=== PATIENT | female | born 1930 | race Caucasian/White ===

== ENCOUNTER 2017-01-17 09:12 | Outpatient (CLI) | payer MEDICARE ==
--- NOTE | 2017-01-17 18:27 | CT ---
CT ABDOMEN AND PELVIS WITHOUT CONTRAST 01/17/[address] of the abdomen and pelvis was performed for evaluation of possible ascites. Axial slices we re acquired after giving oral and IV contrast. Coronal and sagittal reconstructions were done. Coronary artery calcifications are seen in the right coronary system. The left coronary artery is not visualized. There are no pericardial effusions. Some dependent atelectasis is seen in the lungs, but they are otherwise clear. The liver, spleen, pancreas, adrenal glands, kidneys, and abdominal aorta showed no acute findings. T here has been a prior cholecystectomy. There is extensive arteriosclerosis at the origin of the james c and SMA, however, contrast does go into each artery. No ascites is seen in this patient. The bowel is nondistended and shows no wall thickening. Diverticu losis is present without findings of diverticulitis. It is worse in the sigmoid region. No free air o r free fluid was evident. CT of the pelvis shows no pelvic masses, fluid collections, or inflammatory changes. Extensive surgic al changes are seen in the lower lumbar spine. IMPRESSION: 1. No evidence of ascites or abdominal distention. 2. Diverticulosis without diverticulitis. POS: HOME
== END 2017-01-17 09:13 | disposition home or self-care (01) ==
LOC: BURCT 09:12
PROVIDERS: ATTEND Family Medicine
DX: R18.8 Other ascites (principal); K57.90 Diverticulosis of intestine, part unspecified, without perforation or abscess without bleeding
CPT/HCPCS: 74177

== ENCOUNTER 2017-02-07 11:05 | Emergency (ER) | payer MEDICARE ==
[2017-02-07] MEDS ORDERED: Metoprolol Tartrate 5 MG/5 ML VIAL ONE (11:36)
[2017-02-07 11:40] LABS: #Basophils 0.1 thou/uL (0.0-0.2); #Eosinphils 0.2 thou/uL (0.0-0.7); #Lymphocytes 1.6 thou/uL (1.20-3.40); #Monocytes 0.6 thou/uL (0.11-0.59); #Neutrophils 5.4 thou/uL (1.40-6.50); %Eosinophils 2.3 % (0.0-10.0); %Lymphocytes 20.2 % (21.0-51.0); %Monocytes 7.3 % (0.0-10.0); %Neutrophils 69.2 % (42.0-75.0); Hemoglobin 14.5 g/dL (12.0-16.0); Mean Corpuscular HGB CONC 35.6 g/dL (32.0-36.0); Mean Corpuscular Hemoglobin 34.4 pg (27.0-31.0); Mean Corpuscular Volume 96.8 fl (81.0-99.0); Mean Platelet Volume 8.4 fL (7.4-10.4); Platelet Count 175 thou/uL (130-400); RBC Distribution Width 11.7 % (11.5-14.5); White Blood Cell (WBC) Count 7.8 thou/uL (4.8-10.8)
[2017-02-07 11:49] LABS: Anion Gap 15 mmol/L (10-20); BUN (Urea Nitrogen) 20 mg/dL (9.8-20.1); Calc. Creatinine Clearance 0 mL/min (70-130); Calcium 9.8 mg/dL (7.8-10.44); Carbon Dioxide 24 mmol/L (23-31); Chloride 99 mmol/L (98-107); Estimated GFR-MDRD 65; Glucose 84 mg/dL (83-110); Sodium 134 mmol/L (136-145)
[2017-02-07 11:54] LABS: PLT Morphology Comment Appears Adequate; RBC Morphology Normal
[2017-02-07 11:55] LABS: Troponin I 0.069 ng/mL (< 0.028)
--- NOTE | 2017-02-07 19:30 | RAD ---
PORTABLE CHEST 02/07/17 An AP portable film at 1152 is compared with a 02/23/16 study. There is some streaking in the right base medially, a bit more so than seen on the prior film. I evens ot exclude an early infiltrate here, but atelectasis could also be a cause. No major infiltrate was s een otherwise. There are no congestive changes or large pleural effusions. The cardiac size is stable and there are no congestive findings. Calcified nodes are present as before in the ivone and mediasti num. IMPRESSION: Mild right basilar streaking medially. Infiltrate or atelectasis is possible. Correlate with clinical symptoms. Code T POS: HOME
== END 2017-02-07 12:15 | disposition home or self-care (01) ==
LOC: BURERS 11:05
DX: I10 Essential (primary) hypertension (principal); I25.2 Old myocardial infarction
CPT/HCPCS: 71010; 80048; 82553; 83880; 84484; 85025; 93005; 96374

== ENCOUNTER 2018-05-10 01:54 | Emergency (ER) | payer MEDICARE ==
[2018-05-10 03:14] LABS: ALT (SGPT) 18 U/L (8-55); AST (SGOT) 19 U/L (5-34); Albumin 3.9 g/dL (3.4-4.8); Alkaline Phosphatase 79 U/L (40-150); Anion Gap 16 mmol/L (10-20); BUN (Urea Nitrogen) 19 mg/dL (9.8-20.1); Bilirubin, Total 0.7 mg/dL (0.2-1.2); CK (CPK) 54 U/L (29-168); Calc. Creatinine Clearance 0 mL/min (70-130); Calcium 9.2 mg/dL (7.8-10.44); Carbon Dioxide 21 mmol/L (23-31); Chloride 98 mmol/L (98-107); Estimated GFR-MDRD 50; Globulin 2.7 g/dL (2.4-3.5); Glucose 107 mg/dL (83-110); Potassium 4.5 mmol/L (3.5-5.1); Protein, Total 6.6 g/dL (6.0-8.3); Sodium 130 mmol/L (136-145)
[2018-05-10 03:30] LABS: #Eosinphils 0.1 thou/uL (0.0-0.7); #Lymphocytes 0.7 thou/uL (1.20-3.40); #Monocytes 0.4 thou/uL (0.11-0.59); #Neutrophils 3.8 thou/uL (1.40-6.50); %Basophils 0.6 % (0.0-1.0); %Eosinophils 1.2 % (0.0-10.0); %Lymphocytes 13.2 % (21.0-51.0); %Monocytes 7.7 % (0.0-10.0); %Neutrophils 77.2 % (42.0-75.0); Hemoglobin 9.9 g/dL (12.0-16.0); MDiff Complete? YES; Macrocytosis SLIGHT = 6-15 cells (100X) (0-5/hpf); Mean Corpuscular HGB CONC 34.7 g/dL (32.0-36.0); Mean Platelet Volume 8.8 fL (7.4-10.4); Ovalocytes SLIGHT = 2-5 cells (100X) (0-1/hpf); Platelet Count 131 thou/uL (130-400); Platelet Morphology Comment Appears Adequate; RBC Distribution Width 13.9 % (11.5-14.5); Red Blood Cell (RBC) Count 2.82 mill/uL (4.20-5.40)
[2018-05-10 03:32] LABS: Clarity Hazy (Clear); Glucose, Urine (Dipstick) Negative (Negative); Leukocyte Small (Negative); Nitrite Negative (Negative); Protein, Urine (Dipstick) 30 mg/dL (Neg-Trace)
[2018-05-10 03:33] LABS: Bilirubin Small (Negative); Blood, Urine Negative (Negative); Urobilinogen 0.2 mg/dL (0.2-1.0)
[2018-05-10 03:34] LABS: Bacteria/HPF 2+ HPF (None Seen); Squamous Epithelial 0-3 HPF (0-3)
[2018-05-10 03:35] LABS: Hyaline Casts/LPF 4-6 HYALINE CAST LPF (0-3 Hyaline)
[2018-05-10] MEDS ORDERED: cefTRIAXone\\ROCEPHIN 1 GM VIAL ONE (03:41)
== END 2018-05-10 04:07 | disposition home or self-care (01) ==
LOC: BURERS 01:54
DX: N39.0 Urinary tract infection, site not specified (principal); I10 Essential (primary) hypertension; I25.2 Old myocardial infarction; Z79.899 Other long term (current) drug therapy; Z79.82 Long term (current) use of aspirin
CPT/HCPCS: 36415; 80053; 81003; 81015; 82550; 84484; 85025; 87077; 87086; 87186; 93005; 96374; J0696

== ENCOUNTER 2018-11-04 17:03 | Emergency (ER) | payer MEDICARE ==
[2018-11-04 17:43] LABS: #Eosinphils 0.1 thou/uL (0.0-0.7); #Lymphocytes 1.2 thou/uL (1.20-3.40); #Monocytes 0.3 thou/uL (0.11-0.59); #Neutrophils 2.6 thou/uL (1.40-6.50); %Basophils 1.1 % (0.0-1.0); %Eosinophils 1.8 % (0.0-10.0); %Lymphocytes 28.6 % (21.0-51.0); %Monocytes 7.6 % (0.0-10.0); Hemoglobin 11.7 g/dL (12.0-16.0); Mean Corpuscular HGB CONC 33.7 g/dL (32.0-36.0); Mean Corpuscular Hemoglobin 33.6 pg (27.0-31.0); Mean Corpuscular Volume 99.6 fL (78.0-98.0); Mean Platelet Volume 8.3 fL (7.4-10.4); Platelet Count 168 thou/uL (130-400); RBC Distribution Width 13.5 % (11.5-14.5); Red Blood Cell (RBC) Count 3.48 mill/uL (4.20-5.40); White Blood Cell (WBC) Count 4.3 thou/uL (4.8-10.8)
[2018-11-04 17:49] LABS: Bilirubin Negative (Negative); Blood, Urine Negative (Negative); Clarity Clear (Clear); Glucose, Urine (Dipstick) Negative (Negative); Leukocyte Small (Negative); Nitrite Negative (Negative); Protein, Urine (Dipstick) Negative (Neg-Trace)
[2018-11-04 17:54] LABS: Bacteria/HPF 2+ HPF (None Seen); RBC/HPF 0-3 HPF (0-3); Squamous Epithelial 0-3 HPF (0-3)
[2018-11-04 17:57] LABS: ALT (SGPT) 9 U/L (8-55); AST (SGOT) 15 U/L (5-34); Alkaline Phosphatase 92 U/L (40-150); BUN (Urea Nitrogen) 28 mg/dL (9.8-20.1); Bilirubin, Total 0.5 mg/dL (0.2-1.2); CK (CPK) 30 U/L (29-168); Calc. Creatinine Clearance 0 mL/min (70-130); Calcium 9.2 mg/dL (7.8-10.44); Chloride 100 mmol/L (98-107); Estimated GFR-MDRD 37; Glucose 105 mg/dL (83-110); Potassium 3.7 mmol/L (3.5-5.1); Sodium 139 mmol/L (136-145)
[2018-11-04] MEDS ORDERED: Nitrofurantoin Monohyd/M-Cryst 100 MG CAP ONE (18:24)
== END 2018-11-04 18:30 | disposition home or self-care (01) ==
LOC: BURERS 17:03
DX: N30.00 Acute cystitis without hematuria (principal); I10 Essential (primary) hypertension; Z87.891 Personal history of nicotine dependence; I25.2 Old myocardial infarction; Z79.82 Long term (current) use of aspirin; Z79.899 Other long term (current) drug therapy
CPT/HCPCS: 80053; 81003; 81015; 82550; 83880; 85025; 93005

== ENCOUNTER 2018-12-08 16:07 | Emergency (ER) | payer MEDICARE ==
[2018-12-08 16:59] LABS: ALT (SGPT) 13 U/L (8-55); AST (SGOT) 16 U/L (5-34); Albumin 3.8 g/dL (3.4-4.8); Alkaline Phosphatase 78 U/L (40-110); Anion Gap 15 mmol/L (10-20); BUN (Urea Nitrogen) 23 mg/dL (9.8-20.1); Bilirubin, Total 0.6 mg/dL (0.2-1.2); Calc. Creatinine Clearance 0 mL/min (70-130); Calcium 9.1 mg/dL (7.8-10.44); Carbon Dioxide 25 mmol/L (23-31); Chloride 102 mmol/L (98-107); Estimated GFR-MDRD 30; Globulin 2.6 g/dL (2.4-3.5); Glucose 94 mg/dL (83-110); Potassium 4.3 mmol/L (3.5-5.1); Protein, Total 6.4 g/dL (6.0-8.3); Sodium 138 mmol/L (136-145)
[2018-12-08 17:01] LABS: Hemoglobin 10.7 g/dL (12.0-16.0); Mean Corpuscular Hemoglobin 34.6 pg (27.0-31.0); White Blood Cell (WBC) Count 4.2 thou/uL (4.8-10.8)
[2018-12-08 17:02] LABS: #Basophils 0.1 thou/uL (0.0-0.2); #Eosinphils 0.1 thou/uL (0.0-0.7); #Monocytes 0.4 thou/uL (0.11-0.59); #Neutrophils 2.5 thou/uL (1.40-6.50); %Basophils 1.3 % (0.0-1.0); %Eosinophils 3.1 % (0.0-10.0); %Lymphocytes 28.6 % (21.0-51.0); %Monocytes 8.3 % (0.0-10.0); %Neutrophils 58.7 % (42.0-75.0); MDiff Complete? YES; Mean Corpuscular HGB CONC 34.2 g/dL (32.0-36.0); Mean Platelet Volume 9.4 fL (7.4-10.4); Platelet Count 157 thou/uL (130-400); RBC Distribution Width 14.1 % (11.5-14.5)
[2018-12-08 17:46] LABS: Bilirubin Negative (Negative); Blood, Urine Trace (Negative); Clarity Cloudy (Clear); Glucose, Urine (Dipstick) Negative (Negative); Leukocyte Large (Negative); Nitrite Negative (Negative); Protein, Urine (Dipstick) 30 mg/dL (Neg-Trace); Urobilinogen 0.2 mg/dL (Less than 2)
[2018-12-08 17:50] LABS: Bacteria/HPF 3+ HPF (None Seen); Broad Cast None Seen LPF (None Seen); Calcium Oxalate Crystals None Seen HPF (None Seen); Cellular Cast None Seen LPF (None Seen); Epithelial Cast None Seen LPF (None Seen); Fatty Cast None Seen LPF (None Seen); Mucous/LPF None Seen LPF (<2+); Other Casts None Seen LPF (None Seen); Oval Fat Bodies/HPF None Seen HPF (None Seen); RBC/HPF 0-3 HPF (0-3); Red Blood Cell Cast None Seen LPF (None Seen); Renal Epithelial None Seen HPF (None Seen); Sperm/HPF None Seen HPF (None Seen); Transitional Epithelial None Seen HPF (None Seen); Trichomonas/HPF None Seen HPF (None Seen); Triple Phosphate Crystal None Seen HPF (None Seen); Unclassified Crystals None Seen HPF (None Seen); Waxy Cast None Seen LPF (None Seen); White Blood Cell Cast None Seen LPF (None Seen); Yeast-Budding None Seen HPF (None Seen); Yeast-Hyphae None Seen HPF (None Seen)
[2018-12-08] MEDS ORDERED: Cephalexin 500 MG CAP ONE (18:09)
--- NOTE | 2018-12-08 21:27 | RAD ---
PORTABLE CHEST: Date: 12-08-18 FINDINGS: An AP portable film at 1631 is compared with a 02-07-17 study. Cardiomegaly is present as before, though perhaps the cardiac size is slightly larger. There is no pu lmonary edema or definitive vascular congestion. Some basilar haziness near the right hemidiaphragm i s really no different than before. The lungs are otherwise clear. Calcific changes are seen in the ao rta as usual. IMPRESSION: Cardiomegaly, perhaps slightly greater than in 2017. POS: HOME
[2018-12-09 04:21] LABS: #Lymphocytes 1.2 thou/uL (1.20-3.40)
== END 2018-12-08 18:18 | disposition home or self-care (01) ==
LOC: BURERS 16:07
DX: N39.0 Urinary tract infection, site not specified (principal); R55 Syncope and collapse; I10 Essential (primary) hypertension; I48.91 Unspecified atrial fibrillation; I25.10 Atherosclerotic heart disease of native coronary artery without angina pectoris; I25.2 Old myocardial infarction; Z87.891 Personal history of nicotine dependence; Z79.899 Other long term (current) drug therapy; Z79.82 Long term (current) use of aspirin
CPT/HCPCS: 71045; 80053; 81003; 81015; 83880; 84484; 85025; 93005

== ENCOUNTER 2018-12-12 07:41 | Inpatient (IN) | payer MEDICARE ==
[2018-12-12] MEDS ORDERED: Ibuprofen 200 MG TAB ONE (08:06)
[2018-12-12] MEDS ORDERED: traMADol HCl 50 MG TAB ONE (08:06)
[2018-12-12 09:36] LABS: #Basophils 0.1 thou/uL (0.0-0.2); #Eosinphils 0.1 thou/uL (0.0-0.7); #Monocytes 0.3 thou/uL (0.11-0.59); #Neutrophils 4.6 thou/uL (1.40-6.50); %Basophils 0.9 % (0.0-1.0); %Eosinophils 1.1 % (0.0-10.0); %Lymphocytes 15.9 % (21.0-51.0); %Monocytes 5.4 % (0.0-10.0); %Neutrophils 76.7 % (42.0-75.0); Hemoglobin 10.5 g/dL (12.0-16.0); MDiff Complete? YES; Macrocytosis SLIGHT = 6-15 cells (100X) (0-5/hpf); Mean Corpuscular Hemoglobin 34.2 pg (27.0-31.0); Mean Platelet Volume 9.2 fL (7.4-10.4); Platelet Count 153 thou/uL (130-400); RBC Distribution Width 14.8 % (11.5-14.5); Red Blood Cell (RBC) Count 3.07 mill/uL (4.20-5.40)
[2018-12-12 09:45] LABS: Bilirubin Small (Negative); Blood, Urine Negative (Negative); Clarity Clear (Clear); Glucose, Urine (Dipstick) Negative (Negative); Leukocyte Negative (Negative); Nitrite Negative (Negative); Protein, Urine (Dipstick) Negative (Neg-Trace); Urobilinogen 0.2 mg/dL (Less than 2)
[2018-12-12 09:53] LABS: ALT (SGPT) 14 U/L (8-55); AST (SGOT) 25 U/L (5-34); Albumin 3.6 g/dL (3.4-4.8); Alkaline Phosphatase 74 U/L (40-110); Anion Gap 16 mmol/L (10-20); BUN (Urea Nitrogen) 26 mg/dL (9.8-20.1); Bilirubin, Total 0.8 mg/dL (0.2-1.2); Calc. Creatinine Clearance 0 mL/min (70-130); Calcium 9.4 mg/dL (7.8-10.44); Carbon Dioxide 24 mmol/L (23-31); Chloride 102 mmol/L (98-107); Estimated GFR-MDRD 34; Globulin 3.1 g/dL (2.4-3.5); Glucose 99 mg/dL (83-110); Potassium 4.6 mmol/L (3.5-5.1); Protein, Total 6.7 g/dL (6.0-8.3); Sodium 137 mmol/L (136-145)
[2018-12-12] MEDS ORDERED: Morphine 2 MG/ML SYRINGE ONE (10:32)
[2018-12-12] MEDS ORDERED: Acetaminophen 650 MG Suppository PR PRN (11:46)
[2018-12-12] MEDS ORDERED: HYDROcodone/Acetaminophen 5/325 mg Tablet PO PRN (11:46)
[2018-12-12] MEDS ORDERED: Ondansetron PF 4 MG/2 ML Vial SLOW IVP PRN (11:46)
[2018-12-12] MEDS ORDERED: Ondansetron ODT 4 MG TAB PO PRN (11:46)
--- NOTE | 2018-12-12 17:34 | CT ---
CT LUMBAR SPINE 12/12/18 Comparison is made with the prior study dated 03/16/16. Axial slices were acquired followed by coronal and sagittal reconstructions. Since the prior exams, there has been a fracture through a substantial portion of the anterior inferi or corner of the T12 vertebral body. Fragment is displaced slightly. It does not appear to cause any significant neural impingement. There has been a prior posterior lumbar fusion with pedicle screws at L3 through S1. No fractures were detected elsewhere. Disc space narrowing and osteophytes are promin ent at the L1-L2 level. Findings by level follow: T11-T12: No acute bony changes. There is soft tissue swelling around the paravertebral region, probab ly referable to the fracture below. T12-L1: The fracture of T12 has been described above. No disc protrusion was seen. Epidural stimulato r leads are seen entering around this level. L1-L2: Large anterior and lateral osteophytes with a degenerated disc and disc space narrowing. The t hecal sac is crowded at this level. L2-L3: Central canal stenosis due to facet and ligamentous hypertrophy. L3-L4: Some degree of central canal stenosis due to facet and ligamentous hypertrophy. Osteophytes in the left lateral position may cause some neural impingement. L4-L5: Difficult to discern well due to streak artifact from the hardware. No gross acute change. The re is a mild anterolisthesis of L4 and L5 by about 4 to 5 mm. L5-S1: No acute findings. Incidental findings are diverticulosis in the lower colon and some calcifications in the left kidney that are presumed to be calculi. There may be some thickening of the left adrenal gland but it does n ot appear to be significant. IMPRESSION: 1. Fracture through the anterior inferior corner of T12 with this being a new finding since the prior studies. Its appearance suggests it is more recent than not. 2. Diffuse degenerative changes as noted. POS: HOME
[2018-12-12] MEDS ORDERED: Bisacodyl 5 MG TAB PO PRN (18:04)
[2018-12-12] MEDS ORDERED: Morphine 2 MG/ML SYRINGE SLOW IVP PRN (18:08)
[2018-12-12] MEDS: Isosorbide Mononitrate (ER) 30 MG TAB PO SCH (21:01)
[2018-12-13] MEDS: Polyethylene Glycol 3350 17 GM Packet PO SCH (09:31)
[2018-12-13] MEDS: Furosemide 40 MG TAB PO SCH (09:32)
[2018-12-13] MEDS: Clopidogrel Bisulfate 75 MG TAB PO SCH (09:32)
[2018-12-13] MEDS: Potassium Chloride 20 MEQ TAB PO SCH (09:32)
[2018-12-13] MEDS: Aspirin 81 mg Enteric Coated Tablet PO SCH (09:33)
[2018-12-13] MEDS: Isosorbide Mononitrate (ER) 30 MG TAB PO SCH ×2 (09:33→20:48)
[2018-12-13] MEDS: HYDROcodone/Acetaminophen 5/325 mg Tablet PO PRN ×3 (09:38→23:05)
[2018-12-13] MEDS ORDERED: ALPRAZolam 0.5 MG TAB PO PRN (21:22)
[2018-12-13] MEDS ORDERED: Simvastatin 5 MG TAB PO SCH (21:30)
[2018-12-13] MEDS ORDERED: Mag-Al Plus 1200 MG/1200 MG/120 MG/30 ML UDCUP PO PRN (22:01)
[2018-12-14] MEDS: HYDROcodone/Acetaminophen 5/325 mg Tablet PO PRN (09:49)
[2018-12-14] MEDS: Polyethylene Glycol 3350 17 GM Packet PO SCH (09:50)
[2018-12-14] MEDS: Aspirin 81 mg Enteric Coated Tablet PO SCH (09:51)
[2018-12-14] MEDS: Isosorbide Mononitrate (ER) 30 MG TAB PO SCH ×2 (09:51→21:40)
[2018-12-14] MEDS: Clopidogrel Bisulfate 75 MG TAB PO SCH (09:52)
[2018-12-14] MEDS: Potassium Chloride 20 MEQ TAB PO SCH (09:52)
[2018-12-14] MEDS: Furosemide 40 MG TAB PO SCH (09:55)
[2018-12-14] MEDS: Famotidine 20 MG TAB PO SCH (09:55)
[2018-12-14] MEDS: Oxybutynin 5 MG TAB PO SCH (09:55)
[2018-12-14] MEDS ORDERED: Simvastatin 5 MG TAB PO SCH (21:00)
[2018-12-14] MEDS ORDERED: Acetaminophen 325 MG TAB PO PRN (22:25)
[2018-12-15 05:45] LABS: ALT (SGPT) 14 U/L (8-55); AST (SGOT) 18 U/L (5-34); Albumin 3.4 g/dL (3.4-4.8); Alkaline Phosphatase 82 U/L (40-110); Anion Gap 16 mmol/L (10-20); BUN (Urea Nitrogen) 32 mg/dL (9.8-20.1); Bilirubin, Total 0.8 mg/dL (0.2-1.2); Calc. Creatinine Clearance 36 mL/min (70-130); Calcium 9.1 mg/dL (7.8-10.44); Carbon Dioxide 24 mmol/L (23-31); Chloride 101 mmol/L (98-107); Estimated GFR-MDRD 43; Globulin 2.9 g/dL (2.4-3.5); Glucose 128 mg/dL (83-110); Potassium 4.9 mmol/L (3.5-5.1); Protein, Total 6.3 g/dL (6.0-8.3); Sodium 136 mmol/L (136-145)
[2018-12-15 05:49] LABS: #Basophils 0.1 thou/uL (0.0-0.2); #Eosinphils 0.1 thou/uL (0.0-0.7); #Lymphocytes 0.9 thou/uL (1.20-3.40); #Monocytes 0.7 thou/uL (0.11-0.59); %Basophils 0.6 % (0.0-1.0); %Eosinophils 0.7 % (0.0-10.0); %Lymphocytes 10.5 % (21.0-51.0); %Monocytes 8.3 % (0.0-10.0); %Neutrophils 79.9 % (42.0-75.0); Anisocytosis SLIGHT = 6-15 cells (100X) (0-5/hpf); Hemoglobin 10.4 g/dL (12.0-16.0); MDiff Complete? YES; Macrocytosis MODERATE=16-30 cells (100X) (0-5/hpf); Mean Corpuscular HGB CONC 33.4 g/dL (32.0-36.0); Mean Corpuscular Hemoglobin 34.1 pg (27.0-31.0); Mean Platelet Volume 7.8 fL (7.4-10.4); Platelet Count 139 thou/uL (130-400); Platelet Morphology Comment Appears Adequate; RBC Distribution Width 14.9 % (11.5-14.5); Red Blood Cell (RBC) Count 3.04 mill/uL (4.20-5.40); White Blood Cell (WBC) Count 8.8 thou/uL (4.8-10.8)
[2018-12-15 06:32] VITALS: BP 138/64; TEMP 98.8
[2018-12-15] MEDS: Potassium Chloride 20 MEQ TAB PO SCH (08:56)
[2018-12-15] MEDS: Isosorbide Mononitrate (ER) 30 MG TAB PO SCH (08:56)
[2018-12-15] MEDS: Oxybutynin 5 MG TAB PO SCH (08:56)
[2018-12-15] MEDS: Famotidine 20 MG TAB PO SCH (08:57)
[2018-12-15] MEDS: Aspirin 81 mg Enteric Coated Tablet PO SCH (08:57)
[2018-12-15] MEDS: Polyethylene Glycol 3350 17 GM Packet PO SCH (08:57)
[2018-12-15] MEDS: Clopidogrel Bisulfate 75 MG TAB PO SCH (08:57)
[2018-12-15] MEDS ORDERED: Furosemide 40 MG TAB PO SCH (09:00)
[2018-12-15 09:32] VITALS: BMI 30.3
--- NOTE | 2018-12-15 17:37 | DIS ---
DATE OF ADMISSION: 12/12/2018 DATE OF DISCHARGE: 12/15/2018 The patient's date of transfer to halfway is 12/15/2018. ADMISSION DIAGNOSES: 1. T12 vertebral fracture with pain control. 2. Inability to ambulate secondary to #1. 3. Recent episode of sundowning with delirium, improving. HISTORY AND PHYSICAL: The patient is an 88-year-old white female, who fell at home tripping over her right big toe. She developed a T12 vertebral fracture requiring admission to the hospital, due to requirement for IV pain medication and pain control. The patient is unable to ambulate as well. HOSPITAL COURSE: The patient was admitted to the floor. She was given IV morphine plus p.o. [place] and Tylenol as needed for pain. Initially, her pain control was adequate. Then after 24 hours, the patient developed an episode of confusion, disorientation, was having garbled speech after getting pain medications, the pain medications were held, but the next 12 hours, the patient's symptoms resolved and is likely delirium secondary to pain medication and narcotics. Switched the patient to Tylenol and ibuprofen for pain since the patient ambulated without assistance and had significant pain. She is deemed appropriate to be transferred to swing bed for halfway, physical therapy and occupational therapy. TRANSFER MEDICATIONS: The patient will continue all the routine medications. See admission medication list. Expected length of stay in swing bed status likely 7 to 14 days depending upon the patient's tolerance to pain and her ability to ambulate. Job ID: [id number]
--- NOTE | 2018-12-15 21:54 | HP ---
CHIEF COMPLAINT: Fall with back pain. HISTORY OF PRESENT ILLNESS: The patient is an 88-year-old white female, who lives usually independently on her own, who reports while walking last night, she tripped over her big toe on her right side and fell. She was unable to get off the floor. She required assistance to lift her into bed. This morning, she was unable to get out of the bed and reports severe 10/10 pain in her mid to lower back. The patient was seen in the emergency room. CT scan performed of the back showed her T12 vertebral fracture. PAST MEDICAL HISTORY: 1. Hypertension. 2. Coronary artery disease. 3. History of atrial fibrillation. 4. History of chronic back pain with an implanted stimulator in place on the left side. 5. Osteoarthritis. PAST SURGICAL HISTORY: Back surgery with an implanted stimulator on the left side, stents placed, multiple bilateral knee replacements. MEDICATIONS: The patient reports potassium chloride 40 mEq daily, aspirin 81 mg daily, alprazolam 0.25 mg q.h.s., Plavix 75 mg daily, Lasix 80 mg b.i.d., Mevacor 40 mg daily, Toprol-XL 25 mg daily, Ranexa 1000 mg b.i.d. The patient also recently finished Keflex for recent UTI. ALLERGIES: THE PATIENT REPORTS A RASH WITH [facility]ICA MEDICATIONS. THE PATIENT ALSO REPORTS A RASH WITH SULFA AND PYRIDIUM. SOCIAL HISTORY: The patient is , currently fairly independent in all activities of daily living. She drinks socially, but denies any alcohol or social drug use. Otherwise, she is an ex-smoker. REVIEW OF SYSTEMS: The patient reports occasional cough. No recent fevers or chills. She did have a recent UTI, which was treated effectively and the patient reports resolution of all UTI-like symptoms. The patient's appetite has been stable. She has a significant pain at this time secondary to her back. The patient reports no recent weight gain or weight loss. No chest pain or shortness of breath. No nausea, vomiting, or diarrhea. No new rashes. The patient's vision is at its baseline. PHYSICAL EXAMINATION: GENERAL: White female, alert and oriented x3 with obvious distress secondary to back pain, currently in a brace. VITAL SIGNS: Blood pressure was 132/88; respiratory rate was 20; pulse was in the 80s, but very irregular. HEENT: Atraumatic, normocephalic. Extraocular movements are intact. Pupils are equal, round, reactive to light and accommodation. Oropharynx; mucous membranes are moist. No exudate, discharge nor lesions. NECK: Supple. No masses palpated. No bruits auscultated. CHEST: Clear to auscultation bilaterally. HEART: Irregularly irregular rate and rhythm. ABDOMEN: Full, soft. Bowel sounds positive in all 4 quadrants. Nontender to palpation. EXTREMITIES: No cyanosis, clubbing, or edema. BACK: Had midline vertebral tenderness. IMAGING DATA: CT scan of the back showed a T12 vertebral body fracture without any significant displacement. The patient's case was discussed by ER doctor with Neurosurgery PA on-call and said it was appropriate for the patient to be in a TLSO bracing and outpatient followup without any further acute intervention. We will put her on IV pain medications due to severity of pain. ASSESSMENT AND PLAN: 1. T12 vertebral fracture. The patient was placed in a TLSO brace. She is in severe pain, could not ambulate, requiring IV narcotics for pain control with morphine. We will continue her on the morphine plus Tylenol p.o. We will watch her signs of constipation or mental status changes secondary to the morphine. The patient will require inpatient status due to her requirement of IV pain medication and the fact the patient is unable to ambulate and she lives alone at home. 2. Atrial fibrillation. The patient is only on Plavix, not on aspirin. Apparently, per her watch commander, Dr. Ramirez, no further anticoagulation was appropriate. We will continue in followup for heart rate. 3. History of heart failure. We will continue the patient on Lasix 80 mg daily. 4. Hypertension, presently controlled. 5. Hypoxia. The patient was found to have an O2 saturation in the 80s without oxygen; with oxygen, it goes into the mid to high 90s. She does report being prescribed oxygen several months ago after having a respiratory illness. Likely, the patient's wearing of the brace and her underlying chronic bronchitis/chronic obstructive pulmonary disease is causing her hypoxia. We will continue to follow for any signs of worsening status. DISPOSITION: The patient will likely need prolonged inpatient fpc due to her pain requirements and inability to ambulate. Job ID: [id number]
== END 2018-12-15 16:33 | disposition swing bed (61) | DRG 552 ==
LOC: BURERS 07:41 → BURMED 11:00 → UNDOADMIN 11:00
PROVIDERS: ADMIT Family Medicine; ATTEND Family Medicine
DX: S22.089A Unspecified fracture of T11-T12 vertebra, initial encounter for closed fracture (principal); F05 Delirium due to known physiological condition; I25.10 Atherosclerotic heart disease of native coronary artery without angina pectoris; I48.91 Unspecified atrial fibrillation; G89.29 Other chronic pain; M19.91 Primary osteoarthritis, unspecified site; Z96.653 Presence of artificial knee joint, bilateral; W01.0XXA Fall on same level from slipping, tripping and stumbling without subsequent striking against object, initial encounter; I11.0 Hypertensive heart disease with heart failure; I50.9 Heart failure, unspecified; Z88.2 Allergy status to sulfonamides; Z88.8 Allergy status to other drugs, medicaments and biological substances; R09.02 Hypoxemia
CPT/HCPCS: 36415; 51701; 72131; 80053; 81003; 85025; 96374; A4353; J2270

== ENCOUNTER 2018-12-15 16:33 | Inpatient (IN) | payer MEDICARE ==
[2018-12-15 19:40] LABS: Bilirubin Negative (Negative); Blood, Urine Negative (Negative); Clarity Clear (Clear); Glucose, Urine (Dipstick) Negative (Negative); Leukocyte Negative (Negative); Nitrite Negative (Negative); Protein, Urine (Dipstick) Negative (Neg-Trace); Urobilinogen 0.2 mg/dL (Less than 2)
[2018-12-15 19:42] LABS: RBC/HPF 0-3 HPF (0-3)
--- NOTE | 2018-12-15 20:40 | RAD ---
Abdomen 2 views: HISTORY: Abdominal distention FINDINGS: Extensive postoperative changes of the lower lumbar spine. Dorsal column stimulator leads overlie the lower thoracic spine. There is cardiomegaly with some bilateral vascular congestion and small bilateral pleural effusions. There is some air and fluid noted within a very mildly distended colon w hich is not significantly dilated. There is also some scattered gas and minimal air-fluid levels in nondilated small bowel. This is nonspecific. It does not have the appearance of significant bowel obs truction. IMPRESSION: Nonspecific air-fluid levels in the colon and small bowel, possibly mild ileus without evidence to gastelum ggest significant high-grade obstruction. Cardiomegaly with evidence for some bilateral vascular congestion and small pleural effusions.
[2018-12-15] MEDS ORDERED: Isosorbide Mononitrate (ER) 30 MG TAB PO SCH (22:30)
[2018-12-15] MEDS: Ibuprofen 200 MG TAB PO PRN (23:28)
[2018-12-16] MEDS: Ibuprofen 200 MG TAB PO PRN (08:37)
[2018-12-16] MEDS ORDERED: Ondansetron ODT 4 MG TAB PO PRN (09:36)
[2018-12-16] MEDS ORDERED: Acetaminophen 650 MG Suppository PR PRN (09:36)
[2018-12-16] MEDS ORDERED: Mag-Al Plus 1200 MG/1200 MG/120 MG/30 ML UDCUP PO PRN (09:36)
[2018-12-16] MEDS ORDERED: Bisacodyl 5 MG TAB PO PRN (09:36)
[2018-12-16] MEDS: Acetaminophen 325 MG TAB PO PRN ×2 (12:23→18:41)
[2018-12-16] MEDS ORDERED: Clopidogrel Bisulfate 75 MG TAB PO SCH (16:00)
[2018-12-16] MEDS ORDERED: Aspirin 81 mg Enteric Coated Tablet PO SCH (16:00)
[2018-12-16] MEDS ORDERED: Famotidine 20 MG TAB PO SCH (16:00)
[2018-12-16] MEDS ORDERED: Polyethylene Glycol 3350 17 GM Packet PO SCH (16:15)
[2018-12-16] MEDS ORDERED: Furosemide 40 MG TAB PO SCH (16:15)
[2018-12-16] MEDS ORDERED: FLU VACC TS2019-20(65YR UP)/PF 180 MCG/0.5 ML SYRINGE IM ONE (17:15)
[2018-12-16] MEDS: Simvastatin 5 MG TAB PO SCH (20:35)
[2018-12-16] MEDS: Isosorbide Mononitrate (ER) 30 MG TAB PO SCH (20:35)
[2018-12-17 05:40] LABS: #Basophils 0.1 thou/uL (0.0-0.2); #Eosinphils 0.1 thou/uL (0.0-0.7); #Lymphocytes 0.9 thou/uL (1.20-3.40); #Monocytes 0.4 thou/uL (0.11-0.59); #Neutrophils 4.3 thou/uL (1.40-6.50); %Basophils 0.9 % (0.0-1.0); %Lymphocytes 15.1 % (21.0-51.0); %Monocytes 7.4 % (0.0-10.0); %Neutrophils 74.5 % (42.0-75.0); Hemoglobin 9.4 g/dL (12.0-16.0); Mean Corpuscular HGB CONC 33.4 g/dL (32.0-36.0); Mean Corpuscular Hemoglobin 33.7 pg (27.0-31.0); Mean Platelet Volume 7.9 fL (7.4-10.4); Platelet Count 153 thou/uL (130-400); Red Blood Cell (RBC) Count 2.78 mill/uL (4.20-5.40); White Blood Cell (WBC) Count 5.8 thou/uL (4.8-10.8)
[2018-12-17 05:49] LABS: ALT (SGPT) 12 U/L (8-55); AST (SGOT) 16 U/L (5-34); Alkaline Phosphatase 75 U/L (40-110); Anion Gap 12 mmol/L (10-20); BUN (Urea Nitrogen) 36 mg/dL (9.8-20.1); Bilirubin, Total 0.7 mg/dL (0.2-1.2); Calc. Creatinine Clearance 38 mL/min (70-130); Calcium 8.6 mg/dL (7.8-10.44); Carbon Dioxide 25 mmol/L (23-31); Chloride 100 mmol/L (98-107); Estimated GFR-MDRD 45; Globulin 2.6 g/dL (2.4-3.5); Glucose 93 mg/dL (83-110); Protein, Total 5.6 g/dL (6.0-8.3); Sodium 133 mmol/L (136-145)
[2018-12-17] MEDS: Clopidogrel Bisulfate 75 MG TAB PO SCH (08:41)
[2018-12-17] MEDS: Potassium Chloride 20 MEQ TAB PO SCH (08:41)
[2018-12-17] MEDS: Aspirin 81 mg Enteric Coated Tablet PO SCH (08:41)
[2018-12-17] MEDS: Furosemide 40 MG TAB PO SCH (08:41)
[2018-12-17] MEDS: Famotidine 20 MG TAB PO SCH (08:42)
[2018-12-17] MEDS: Polyethylene Glycol 3350 17 GM Packet PO SCH (08:42)
[2018-12-17] MEDS: Isosorbide Mononitrate (ER) 30 MG TAB PO SCH ×2 (08:42→20:17)
[2018-12-17] MEDS: Ibuprofen 200 MG TAB PO PRN ×2 (08:45→14:56)
[2018-12-17] MEDS: Simvastatin 5 MG TAB PO SCH (20:17)
[2018-12-17] MEDS: ALPRAZolam 0.5 MG TAB PO PRN (20:22)
[2018-12-18] MEDS: Polyethylene Glycol 3350 17 GM Packet PO SCH (09:08)
[2018-12-18] MEDS: Aspirin 81 mg Enteric Coated Tablet PO SCH (09:08)
[2018-12-18] MEDS: Potassium Chloride 20 MEQ TAB PO SCH (09:08)
[2018-12-18] MEDS: Furosemide 40 MG TAB PO SCH (09:09)
[2018-12-18] MEDS: Clopidogrel Bisulfate 75 MG TAB PO SCH (09:09)
[2018-12-18] MEDS: Famotidine 20 MG TAB PO SCH (09:09)
[2018-12-18] MEDS: Isosorbide Mononitrate (ER) 30 MG TAB PO SCH ×2 (09:09→20:54)
[2018-12-18] MEDS: Ibuprofen 200 MG TAB PO PRN (09:18)
[2018-12-18] MEDS: ALPRAZolam 0.5 MG TAB PO PRN (20:54)
[2018-12-18] MEDS: Simvastatin 5 MG TAB PO SCH (20:54)
[2018-12-19] MEDS: Polyethylene Glycol 3350 17 GM Packet PO SCH (08:58)
[2018-12-19] MEDS: Clopidogrel Bisulfate 75 MG TAB PO SCH (08:59)
[2018-12-19] MEDS: Aspirin 81 mg Enteric Coated Tablet PO SCH (08:59)
[2018-12-19] MEDS: Potassium Chloride 20 MEQ TAB PO SCH (08:59)
[2018-12-19] MEDS: Isosorbide Mononitrate (ER) 30 MG TAB PO SCH ×2 (08:59→20:16)
[2018-12-19] MEDS: Famotidine 20 MG TAB PO SCH (08:59)
[2018-12-19] MEDS: Furosemide 40 MG TAB PO SCH (09:00)
[2018-12-19] MEDS: Simvastatin 5 MG TAB PO SCH (20:16)
[2018-12-19] MEDS: ALPRAZolam 0.5 MG TAB PO PRN (20:17)
[2018-12-20 04:53] LABS: ALT (SGPT) 11 U/L (8-55); AST (SGOT) 13 U/L (5-34); Alkaline Phosphatase 71 U/L (40-110); Anion Gap 14 mmol/L (10-20); BUN (Urea Nitrogen) 27 mg/dL (9.8-20.1); Bilirubin, Total 0.5 mg/dL (0.2-1.2); Calc. Creatinine Clearance 44 mL/min (70-130); Carbon Dioxide 26 mmol/L (23-31); Chloride 102 mmol/L (98-107); Estimated GFR-MDRD 52; Globulin 2.5 g/dL (2.4-3.5); Glucose 86 mg/dL (83-110); Potassium 4.4 mmol/L (3.5-5.1); Protein, Total 5.5 g/dL (6.0-8.3); Sodium 138 mmol/L (136-145)
[2018-12-20 05:03] LABS: #Basophils 0.1 thou/uL (0.0-0.2); #Eosinphils 0.1 thou/uL (0.0-0.7); #Lymphocytes 1.3 thou/uL (1.20-3.40); #Monocytes 0.3 thou/uL (0.11-0.59); #Neutrophils 2.9 thou/uL (1.40-6.50); %Basophils 1.1 % (0.0-1.0); %Eosinophils 3.1 % (0.0-10.0); %Lymphocytes 27.9 % (21.0-51.0); %Monocytes 6.5 % (0.0-10.0); %Neutrophils 61.4 % (42.0-75.0); Anisocytosis SLIGHT = 6-15 cells (100X) (0-5/hpf); Hemoglobin 9.1 g/dL (12.0-16.0); MDiff Complete? YES; Macrocytosis SLIGHT = 6-15 cells (100X) (0-5/hpf); Mean Corpuscular HGB CONC 33.4 g/dL (32.0-36.0); Mean Corpuscular Hemoglobin 34.3 pg (27.0-31.0); Mean Platelet Volume 7.8 fL (7.4-10.4); Ovalocytes SLIGHT = 2-5 cells (100X) (0-1/hpf); Platelet Count 171 thou/uL (130-400); Platelet Morphology Comment Appears Adequate; RBC Distribution Width 15.1 % (11.5-14.5); Red Blood Cell (RBC) Count 2.65 mill/uL (4.20-5.40); White Blood Cell (WBC) Count 4.8 thou/uL (4.8-10.8)
[2018-12-20] MEDS: Polyethylene Glycol 3350 17 GM Packet PO SCH (08:31)
[2018-12-20] MEDS: Aspirin 81 mg Enteric Coated Tablet PO SCH (08:32)
[2018-12-20] MEDS: Potassium Chloride 20 MEQ TAB PO SCH (08:32)
[2018-12-20] MEDS: Famotidine 20 MG TAB PO SCH (08:33)
[2018-12-20] MEDS: Clopidogrel Bisulfate 75 MG TAB PO SCH (08:33)
[2018-12-20] MEDS: Furosemide 40 MG TAB PO SCH (08:33)
[2018-12-20] MEDS: Isosorbide Mononitrate (ER) 30 MG TAB PO SCH ×2 (08:33→20:05)
[2018-12-20] MEDS: Simvastatin 5 MG TAB PO SCH (20:05)
[2018-12-20] MEDS: ALPRAZolam 0.5 MG TAB PO PRN (20:07)
[2018-12-20] MEDS: Ibuprofen 200 MG TAB PO PRN (20:14)
[2018-12-21] MEDS: Famotidine 20 MG TAB PO SCH (09:09)
[2018-12-21] MEDS: Aspirin 81 mg Enteric Coated Tablet PO SCH (09:09)
[2018-12-21] MEDS: Clopidogrel Bisulfate 75 MG TAB PO SCH (09:09)
[2018-12-21] MEDS: Furosemide 40 MG TAB PO SCH (09:09)
[2018-12-21] MEDS: Isosorbide Mononitrate (ER) 30 MG TAB PO SCH ×2 (09:09→20:40)
[2018-12-21] MEDS: Potassium Chloride 20 MEQ TAB PO SCH (09:09)
[2018-12-21] MEDS: Polyethylene Glycol 3350 17 GM Packet PO SCH (09:10)
[2018-12-21] MEDS: ALPRAZolam 0.5 MG TAB PO PRN (20:40)
[2018-12-21] MEDS: Simvastatin 5 MG TAB PO SCH (20:40)
[2018-12-22] MEDS: Furosemide 40 MG TAB PO SCH (08:55)
[2018-12-22] MEDS: Aspirin 81 mg Enteric Coated Tablet PO SCH (08:55)
[2018-12-22] MEDS: Clopidogrel Bisulfate 75 MG TAB PO SCH (08:55)
[2018-12-22] MEDS: Isosorbide Mononitrate (ER) 30 MG TAB PO SCH ×2 (08:55→20:12)
[2018-12-22] MEDS: Famotidine 20 MG TAB PO SCH (08:55)
[2018-12-22] MEDS: Potassium Chloride 20 MEQ TAB PO SCH (08:56)
[2018-12-22] MEDS: Polyethylene Glycol 3350 17 GM Packet PO SCH (08:56)
[2018-12-22] MEDS: Simvastatin 5 MG TAB PO SCH (20:12)
[2018-12-22] MEDS: ALPRAZolam 0.5 MG TAB PO PRN (20:12)
[2018-12-23] MEDS: Polyethylene Glycol 3350 17 GM Packet PO SCH (09:11)
[2018-12-23] MEDS: Aspirin 81 mg Enteric Coated Tablet PO SCH (09:12)
[2018-12-23] MEDS: Famotidine 20 MG TAB PO SCH (09:12)
[2018-12-23] MEDS: Isosorbide Mononitrate (ER) 30 MG TAB PO SCH ×2 (09:13→20:27)
[2018-12-23] MEDS: Clopidogrel Bisulfate 75 MG TAB PO SCH (09:13)
[2018-12-23] MEDS: Furosemide 40 MG TAB PO SCH (09:13)
[2018-12-23] MEDS: Potassium Chloride 20 MEQ TAB PO SCH (09:13)
[2018-12-23] MEDS: Simvastatin 5 MG TAB PO SCH (20:27)
[2018-12-23] MEDS: ALPRAZolam 0.5 MG TAB PO PRN (21:36)
[2018-12-24] MEDS: Isosorbide Mononitrate (ER) 30 MG TAB PO SCH ×2 (08:25→20:43)
[2018-12-24] MEDS: Famotidine 20 MG TAB PO SCH (08:25)
[2018-12-24] MEDS: Aspirin 81 mg Enteric Coated Tablet PO SCH (08:25)
[2018-12-24] MEDS: Furosemide 40 MG TAB PO SCH (08:25)
[2018-12-24] MEDS: Potassium Chloride 20 MEQ TAB PO SCH (08:25)
[2018-12-24] MEDS: Clopidogrel Bisulfate 75 MG TAB PO SCH (08:26)
[2018-12-24] MEDS: Polyethylene Glycol 3350 17 GM Packet PO SCH (08:32)
[2018-12-24] MEDS: Simvastatin 5 MG TAB PO SCH (20:43)
[2018-12-24] MEDS: ALPRAZolam 0.5 MG TAB PO PRN (20:43)
[2018-12-25] MEDS: Aspirin 81 mg Enteric Coated Tablet PO SCH (08:56)
[2018-12-25] MEDS: Polyethylene Glycol 3350 17 GM Packet PO SCH (08:56)
[2018-12-25] MEDS: Potassium Chloride 20 MEQ TAB PO SCH (08:57)
[2018-12-25] MEDS: Clopidogrel Bisulfate 75 MG TAB PO SCH (08:57)
[2018-12-25] MEDS: Famotidine 20 MG TAB PO SCH (08:57)
[2018-12-25] MEDS: Isosorbide Mononitrate (ER) 30 MG TAB PO SCH ×2 (08:58→20:43)
[2018-12-25] MEDS: Furosemide 40 MG TAB PO SCH (08:58)
[2018-12-25 12:59] VITALS: BMI 29.7
[2018-12-25] MEDS: Simvastatin 5 MG TAB PO SCH (20:43)
[2018-12-25] MEDS: ALPRAZolam 0.5 MG TAB PO PRN (20:45)
[2018-12-26] MEDS: Polyethylene Glycol 3350 17 GM Packet PO SCH (08:47)
[2018-12-26] MEDS: Aspirin 81 mg Enteric Coated Tablet PO SCH (08:48)
[2018-12-26] MEDS: Furosemide 40 MG TAB PO SCH (08:49)
[2018-12-26] MEDS: Famotidine 20 MG TAB PO SCH (08:50)
[2018-12-26] MEDS: Clopidogrel Bisulfate 75 MG TAB PO SCH (08:50)
[2018-12-26] MEDS: Isosorbide Mononitrate (ER) 30 MG TAB PO SCH ×2 (08:50→21:13)
[2018-12-26] MEDS: Potassium Chloride 20 MEQ TAB PO SCH (08:50)
[2018-12-26] MEDS: Ibuprofen 200 MG TAB PO PRN (10:47)
[2018-12-26] MEDS: Simvastatin 5 MG TAB PO SCH (21:13)
[2018-12-26] MEDS: ALPRAZolam 0.5 MG TAB PO PRN (21:48)
[2018-12-27] MEDS: Polyethylene Glycol 3350 17 GM Packet PO SCH (08:44)
[2018-12-27] MEDS: Furosemide 40 MG TAB PO SCH (08:45)
[2018-12-27] MEDS: Potassium Chloride 20 MEQ TAB PO SCH (08:45)
[2018-12-27] MEDS: Clopidogrel Bisulfate 75 MG TAB PO SCH (08:45)
[2018-12-27] MEDS: Aspirin 81 mg Enteric Coated Tablet PO SCH (08:45)
[2018-12-27] MEDS: Famotidine 20 MG TAB PO SCH (08:46)
[2018-12-27] MEDS: Isosorbide Mononitrate (ER) 30 MG TAB PO SCH ×2 (08:46→20:34)
[2018-12-27] MEDS: Ibuprofen 200 MG TAB PO PRN ×2 (09:05→15:42)
[2018-12-27] MEDS: Simvastatin 5 MG TAB PO SCH (20:34)
[2018-12-27] MEDS: ALPRAZolam 0.5 MG TAB PO PRN (20:35)
[2018-12-28] MEDS: Clopidogrel Bisulfate 75 MG TAB PO SCH (09:19)
[2018-12-28] MEDS: Furosemide 40 MG TAB PO SCH (09:19)
[2018-12-28] MEDS: Famotidine 20 MG TAB PO SCH (09:19)
[2018-12-28] MEDS: Isosorbide Mononitrate (ER) 30 MG TAB PO SCH ×2 (09:20→21:02)
[2018-12-28] MEDS: Aspirin 81 mg Enteric Coated Tablet PO SCH (09:20)
[2018-12-28] MEDS: Polyethylene Glycol 3350 17 GM Packet PO SCH (09:20)
[2018-12-28] MEDS: Potassium Chloride 20 MEQ TAB PO SCH (09:20)
--- NOTE | 2018-12-28 13:52 | PRG ---
DATE OF SERVICE: 12/28/2018 SUBJECTIVE: The patient is doing well overall, except for mild pain on the left hip with tenderness, she denies any injury. She states that pain is worsen when she is sitting, relieved when she is laying flat. Appetite is good, she is working well with physical therapy. She walked about 35 feet x2 yesterday using rolling walker. OBJECTIVE: VITAL SIGNS: Temperature 97.8, pulse of 65, RR of 18, O2 saturation 93% on room air, and blood pressure 138/62. GENERAL: The patient is alert and oriented, not in respiratory distress. HEENT: Normocephalic and atraumatic. Pupils equally reactive to light. NECK: Supple. Negative for lymphadenopathy. CHEST AND LUNGS: Symmetrical expansion. Clear to auscultation. HEART: Regular rate and rhythm. Negative for murmur. ABDOMEN: Soft and nontender. Normoactive bowel sounds. EXTREMITIES: Good range of motion of both upper and lower extremities. Positive for decreased range of motion of thoracic and lumbar spine. Positive for paraspinal tenderness at the level of L2-L5. Positive for SI joint tenderness. ASSESSMENT: 1. T12 vertebral fracture on TLSO brace, working well with physical therapy. She is requiring ibuprofen for pain. 2. Hypertension, stable. 3. Coronary artery disease with atrial fibrillation. 4. Chronic back pain with nerve stimulator. 5. Degenerative joint disease. PLAN: Continue physical therapy. Continue current pain medicine. Apply warm compress to affected site, may need such on that left side of the back. Job ID: [id number]
[2018-12-28] MEDS: Acetaminophen 325 MG TAB PO PRN (20:58)
[2018-12-28] MEDS: ALPRAZolam 0.5 MG TAB PO PRN (21:00)
[2018-12-28] MEDS: Simvastatin 5 MG TAB PO SCH (21:01)
[2018-12-29] MEDS: Furosemide 40 MG TAB PO SCH (09:38)
[2018-12-29] MEDS: Isosorbide Mononitrate (ER) 30 MG TAB PO SCH ×2 (09:39→20:39)
[2018-12-29] MEDS: Potassium Chloride 20 MEQ TAB PO SCH (09:39)
[2018-12-29] MEDS: Famotidine 20 MG TAB PO SCH (09:39)
[2018-12-29] MEDS: Clopidogrel Bisulfate 75 MG TAB PO SCH (09:39)
[2018-12-29] MEDS: Aspirin 81 mg Enteric Coated Tablet PO SCH (09:40)
[2018-12-29] MEDS: Polyethylene Glycol 3350 17 GM Packet PO SCH (09:41)
[2018-12-29] MEDS: Ibuprofen 200 MG TAB PO PRN (09:45)
[2018-12-29] MEDS: Simvastatin 5 MG TAB PO SCH (20:39)
[2018-12-29] MEDS: ALPRAZolam 0.5 MG TAB PO PRN (20:41)
[2018-12-30] MEDS: Polyethylene Glycol 3350 17 GM Packet PO SCH (08:08)
[2018-12-30] MEDS: Clopidogrel Bisulfate 75 MG TAB PO SCH (08:09)
[2018-12-30] MEDS: Aspirin 81 mg Enteric Coated Tablet PO SCH (08:09)
[2018-12-30] MEDS: Famotidine 20 MG TAB PO SCH (08:10)
[2018-12-30] MEDS: Potassium Chloride 20 MEQ TAB PO SCH (08:10)
[2018-12-30] MEDS: Furosemide 40 MG TAB PO SCH (08:10)
[2018-12-30] MEDS: Isosorbide Mononitrate (ER) 30 MG TAB PO SCH ×2 (08:10→20:19)
[2018-12-30] MEDS: Simvastatin 5 MG TAB PO SCH (20:19)
[2018-12-30] MEDS: ALPRAZolam 0.5 MG TAB PO PRN (20:24)
[2018-12-31] MEDS: Clopidogrel Bisulfate 75 MG TAB PO SCH (09:09)
[2018-12-31] MEDS: Ibuprofen 200 MG TAB PO PRN (09:09)
[2018-12-31] MEDS: Furosemide 40 MG TAB PO SCH (09:10)
[2018-12-31] MEDS: Aspirin 81 mg Enteric Coated Tablet PO SCH (09:10)
[2018-12-31] MEDS: Famotidine 20 MG TAB PO SCH (09:10)
[2018-12-31] MEDS: Isosorbide Mononitrate (ER) 30 MG TAB PO SCH ×2 (09:10→20:45)
[2018-12-31] MEDS: Potassium Chloride 20 MEQ TAB PO SCH (09:10)
[2018-12-31] MEDS: Polyethylene Glycol 3350 17 GM Packet PO SCH (09:13)
[2018-12-31] MEDS: Simvastatin 5 MG TAB PO SCH (20:45)
[2018-12-31] MEDS: ALPRAZolam 0.5 MG TAB PO PRN (20:46)
[2019-01-01] MEDS: Potassium Chloride 20 MEQ TAB PO SCH (09:01)
[2019-01-01] MEDS: Clopidogrel Bisulfate 75 MG TAB PO SCH (09:02)
[2019-01-01] MEDS: Aspirin 81 mg Enteric Coated Tablet PO SCH (09:02)
[2019-01-01] MEDS: Famotidine 20 MG TAB PO SCH (09:02)
[2019-01-01] MEDS: Isosorbide Mononitrate (ER) 30 MG TAB PO SCH ×2 (09:02→20:35)
[2019-01-01] MEDS: Furosemide 40 MG TAB PO SCH (09:03)
[2019-01-01] MEDS: Polyethylene Glycol 3350 17 GM Packet PO SCH (09:03)
[2019-01-01] MEDS: Simvastatin 5 MG TAB PO SCH (20:35)
[2019-01-01] MEDS: ALPRAZolam 0.5 MG TAB PO PRN (20:36)
[2019-01-02] MEDS: Clopidogrel Bisulfate 75 MG TAB PO SCH (09:06)
[2019-01-02] MEDS: Aspirin 81 mg Enteric Coated Tablet PO SCH (09:06)
[2019-01-02] MEDS: Furosemide 40 MG TAB PO SCH (09:06)
[2019-01-02] MEDS: Polyethylene Glycol 3350 17 GM Packet PO SCH (09:06)
[2019-01-02] MEDS: Isosorbide Mononitrate (ER) 30 MG TAB PO SCH ×2 (09:06→21:22)
[2019-01-02] MEDS: Famotidine 20 MG TAB PO SCH (09:06)
[2019-01-02] MEDS: Potassium Chloride 20 MEQ TAB PO SCH (09:07)
[2019-01-02] MEDS: Ibuprofen 200 MG TAB PO PRN ×2 (10:17→21:22)
[2019-01-02] MEDS: ALPRAZolam 0.5 MG TAB PO PRN (21:22)
[2019-01-02] MEDS: Simvastatin 5 MG TAB PO SCH (21:22)
[2019-01-03] MEDS: Clopidogrel Bisulfate 75 MG TAB PO SCH (09:07)
[2019-01-03] MEDS: Furosemide 40 MG TAB PO SCH (09:07)
[2019-01-03] MEDS: Aspirin 81 mg Enteric Coated Tablet PO SCH (09:07)
[2019-01-03] MEDS: Potassium Chloride 20 MEQ TAB PO SCH (09:08)
[2019-01-03] MEDS: Polyethylene Glycol 3350 17 GM Packet PO SCH (09:08)
[2019-01-03] MEDS: Famotidine 20 MG TAB PO SCH (09:08)
[2019-01-03] MEDS: Isosorbide Mononitrate (ER) 30 MG TAB PO SCH ×2 (09:08→21:06)
[2019-01-03] MEDS: Ibuprofen 200 MG TAB PO PRN (17:18)
[2019-01-03] MEDS: traMADol HCl 50 MG TAB PO PRN (21:06)
[2019-01-03] MEDS: Simvastatin 5 MG TAB PO SCH (21:06)
[2019-01-04] MEDS: traMADol HCl 50 MG TAB PO PRN ×2 (05:09→09:10)
[2019-01-04] MEDS: Polyethylene Glycol 3350 17 GM Packet PO SCH (09:00)
[2019-01-04] MEDS: Clopidogrel Bisulfate 75 MG TAB PO SCH (09:01)
[2019-01-04] MEDS: Potassium Chloride 20 MEQ TAB PO SCH (09:01)
[2019-01-04] MEDS: Aspirin 81 mg Enteric Coated Tablet PO SCH (09:03)
[2019-01-04] MEDS: Furosemide 40 MG TAB PO SCH (09:04)
[2019-01-04] MEDS: Isosorbide Mononitrate (ER) 30 MG TAB PO SCH ×2 (09:04→20:54)
[2019-01-04] MEDS: Famotidine 20 MG TAB PO SCH (09:09)
[2019-01-04] MEDS: Simvastatin 5 MG TAB PO SCH (20:54)
[2019-01-05] MEDS: Ibuprofen 200 MG TAB PO PRN (05:00)
[2019-01-05] MEDS: Polyethylene Glycol 3350 17 GM Packet PO SCH (08:59)
[2019-01-05] MEDS: Aspirin 81 mg Enteric Coated Tablet PO SCH (09:00)
[2019-01-05] MEDS: Clopidogrel Bisulfate 75 MG TAB PO SCH (09:00)
[2019-01-05] MEDS: Isosorbide Mononitrate (ER) 30 MG TAB PO SCH ×2 (09:01→20:55)
[2019-01-05] MEDS: Potassium Chloride 20 MEQ TAB PO SCH (09:01)
[2019-01-05] MEDS: Furosemide 40 MG TAB PO SCH (09:01)
[2019-01-05] MEDS: Famotidine 20 MG TAB PO SCH (09:01)
[2019-01-05] MEDS: Simvastatin 5 MG TAB PO SCH (20:55)
[2019-01-05] MEDS: ALPRAZolam 0.5 MG TAB PO PRN (20:56)
[2019-01-06] MEDS ORDERED: Furosemide 40 MG TAB ONE (11:14)
[2019-01-06] MEDS: Potassium Chloride 20 MEQ TAB PO SCH (12:23)
[2019-01-06] MEDS: Clopidogrel Bisulfate 75 MG TAB PO SCH (12:23)
[2019-01-06] MEDS: Aspirin 81 mg Enteric Coated Tablet PO SCH (12:23)
[2019-01-06] MEDS: Polyethylene Glycol 3350 17 GM Packet PO SCH (12:23)
[2019-01-06] MEDS: Famotidine 20 MG TAB PO SCH (12:24)
[2019-01-06] MEDS: Furosemide 40 MG TAB PO SCH (12:24)
[2019-01-06] MEDS: Isosorbide Mononitrate (ER) 30 MG TAB PO SCH ×2 (12:24→21:02)
[2019-01-06] MEDS: ALPRAZolam 0.5 MG TAB PO PRN (21:02)
[2019-01-06] MEDS: Simvastatin 5 MG TAB PO SCH (21:02)
[2019-01-07 06:16] VITALS: BP 100/57; TEMP 98
[2019-01-07] MEDS: Aspirin 81 mg Enteric Coated Tablet PO SCH (08:09)
[2019-01-07] MEDS: Furosemide 40 MG TAB PO SCH (08:10)
[2019-01-07] MEDS: Potassium Chloride 20 MEQ TAB PO SCH (08:10)
[2019-01-07] MEDS: Clopidogrel Bisulfate 75 MG TAB PO SCH (08:11)
[2019-01-07] MEDS: Isosorbide Mononitrate (ER) 30 MG TAB PO SCH (08:11)
[2019-01-07] MEDS: Famotidine 20 MG TAB PO SCH (08:11)
[2019-01-07] MEDS: Polyethylene Glycol 3350 17 GM Packet PO SCH (08:28)
== END 2019-01-07 12:25 | disposition short-term general hospital (02) | DRG 560 ==
LOC: BURMED 16:33
PROVIDERS: ADMIT Family Medicine; ATTEND Family Medicine
DX: S22.089D Unspecified fracture of T11-T12 vertebra, subsequent encounter for fracture with routine healing (principal); N17.9 Acute kidney failure, unspecified; I25.10 Atherosclerotic heart disease of native coronary artery without angina pectoris; I48.91 Unspecified atrial fibrillation; M54.9 Dorsalgia, unspecified; X58.XXXD Exposure to other specified factors, subsequent encounter; I25.2 Old myocardial infarction; K21.9 Gastro-esophageal reflux disease without esophagitis; J44.9 Chronic obstructive pulmonary disease, unspecified; R09.02 Hypoxemia; G89.29 Other chronic pain; I10 Essential (primary) hypertension; Z96.653 Presence of artificial knee joint, bilateral; Z88.2 Allergy status to sulfonamides; Z87.891 Personal history of nicotine dependence
CPT/HCPCS: 36415; 36416; 74019; 80053; 81001; 85025; 87086

== ENCOUNTER → 2019-01-06 | Emergency (ER) | payer MEDICARE ==
[~2019-01-06] MED LIST: Acetaminophen 500 MG TAB ONE; Ondansetron PF 4 MG/2 ML Vial ONE; Pantoprazole 40 MG VIAL ONE; Tranexamic Acid 1,000 MG/10 ML VIAL ONE; diphenhydrAMINE 12.5 MG/5 ML UDCUP ONE; diphenhydrAMINE 50 MG/ML VIAL ONE
[2019-01-06 10:17] LABS: #Basophils 0.1 thou/uL (0.0-0.2); #Eosinphils 0.1 thou/uL (0.0-0.7); #Monocytes 0.4 thou/uL (0.11-0.59); #Neutrophils 5.1 thou/uL (1.40-6.50); %Basophils 0.9 % (0.0-1.0); %Eosinophils 1.8 % (0.0-10.0); %Lymphocytes 15.3 % (21.0-51.0); %Monocytes 5.8 % (0.0-10.0); %Neutrophils 76.2 % (42.0-75.0); Mean Corpuscular HGB CONC 32.3 g/dL (32.0-36.0); Platelet Count 138 thou/uL (130-400); RBC Distribution Width 15.8 % (11.5-14.5); Red Blood Cell (RBC) Count 2.29 mill/uL (4.20-5.40); White Blood Cell (WBC) Count 6.7 thou/uL (4.8-10.8)
[2019-01-06 10:32] LABS: ALT (SGPT) 9 U/L (8-55); AST (SGOT) 12 U/L (5-34); Albumin 3.6 g/dL (3.4-4.8); Alkaline Phosphatase 112 U/L (40-110); Anion Gap 16 mmol/L (10-20); BUN (Urea Nitrogen) 36 mg/dL (9.8-20.1); Bilirubin, Total 0.5 mg/dL (0.2-1.2); Calc. Creatinine Clearance 0 mL/min (70-130); Calcium 9.4 mg/dL (7.8-10.44); Carbon Dioxide 25 mmol/L (23-31); Chloride 98 mmol/L (98-107); Estimated GFR-MDRD 41; Globulin 2.8 g/dL (2.4-3.5); Glucose 115 mg/dL (83-110); Potassium 4.3 mmol/L (3.5-5.1); Protein, Total 6.4 g/dL (6.0-8.3); Sodium 135 mmol/L (136-145)
[2019-01-06 10:45] LABS: Anisocytosis SLIGHT = 6-15 cells (100X) (0-5/hpf); Elliptocytes SLIGHT = 2-5 cells (100X) (0-1/hpf); MDiff Complete? YES; Macrocytosis SLIGHT = 6-15 cells (100X) (0-5/hpf); Poikilocytosis SLIGHT = 6-15 cells (100X) (0-5/hpf); Tear Drops SLIGHT = 2-5 cells (100X) (0-1/hpf)
--- NOTE | 2019-01-06 21:55 | RAD ---
PORTABLE CHEST: Date: 01-06-19 An AP portable film at 1018 is compared with a 12-08-18 study. FINDINGS: Mild to moderate cardiomegaly is about the same as before. The vasculature is a bit congested today, however. Small effusions are likely present. A linear streak in the left lung could be scarring or at electasis. Ossific changes are seen in the aortic arch as usual. IMPRESSION: Mild congestive changes. POS: HOME
== END ==
LOC: BURERS 09:41
DX: E87.79 Other fluid overload (principal); S22.089D Unspecified fracture of T11-T12 vertebra, subsequent encounter for fracture with routine healing; I10 Essential (primary) hypertension; I48.91 Unspecified atrial fibrillation; I25.10 Atherosclerotic heart disease of native coronary artery without angina pectoris; I25.2 Old myocardial infarction; Z87.891 Personal history of nicotine dependence; Z79.02 Long term (current) use of antithrombotics/antiplatelets; Z79.899 Other long term (current) drug therapy; Z79.82 Long term (current) use of aspirin; X58.XXXD Exposure to other specified factors, subsequent encounter
CPT/HCPCS: 36415; 71045; 80053; 85025; 93005; C9113; J0500; J1200; J2405; Q0163

== ENCOUNTER 2019-01-07 12:24 | Emergency (ER) | payer MEDICARE ==
[2019-01-07 12:40] LABS: #Basophils 0.1 thou/uL (0.0-0.2); #Eosinphils 0.1 thou/uL (0.0-0.7); #Lymphocytes 1.8 thou/uL (1.20-3.40); #Monocytes 0.6 thou/uL (0.11-0.59); #Neutrophils 5.7 thou/uL (1.40-6.50); %Basophils 0.8 % (0.0-1.0); %Eosinophils 0.8 % (0.0-10.0); %Lymphocytes 21.3 % (21.0-51.0); %Monocytes 7.4 % (0.0-10.0); %Neutrophils 69.7 % (42.0-75.0); Hemoglobin 7.3 g/dL (12.0-16.0); Mean Corpuscular HGB CONC 32.3 g/dL (32.0-36.0); Mean Corpuscular Hemoglobin 35.5 pg (27.0-31.0); Mean Platelet Volume 8.6 fL (7.4-10.4); Platelet Count 171 thou/uL (130-400); RBC Distribution Width 17.4 % (11.5-14.5); Red Blood Cell (RBC) Count 2.06 mill/uL (4.20-5.40); White Blood Cell (WBC) Count 8.2 thou/uL (4.8-10.8)
[2019-01-07 12:52] LABS: INR-International Normal Ratio 1.2; PTT 34.3 SEC (22.9-36.1); Prothrombin Time 15.4 SEC (12.0-14.7)
[2019-01-07 12:59] LABS: ALT (SGPT) 9 U/L (8-55); AST (SGOT) 11 U/L (5-34); Albumin 3.5 g/dL (3.4-4.8); Alkaline Phosphatase 106 U/L (40-110); Anion Gap 19 mmol/L (10-20); BUN (Urea Nitrogen) 44 mg/dL (9.8-20.1); Bilirubin, Total 0.6 mg/dL (0.2-1.2); Calc. Creatinine Clearance 0 mL/min (70-130); Calcium 9.3 mg/dL (7.8-10.44); Carbon Dioxide 24 mmol/L (23-31); Chloride 99 mmol/L (98-107); Estimated GFR-MDRD 33; Globulin 2.8 g/dL (2.4-3.5); Glucose 136 mg/dL (83-110); Potassium 4.7 mmol/L (3.5-5.1); Protein, Total 6.3 g/dL (6.0-8.3); Sodium 137 mmol/L (136-145)
[2019-01-07 13:07] LABS: Hypochromia SLIGHT = 6-15 cells (100X) (0-5/hpf); MDiff Complete? YES; Macrocytosis MODERATE=16-30 cells (100X) (0-5/hpf); Platelet Morphology Comment Appears Adequate; Polychromasia SLIGHT = 2-3 cells (100X) (0-2/hpf)
== END 2019-01-07 14:10 | disposition short-term general hospital (02) ==
LOC: BURERS 12:24
DX: K92.2 Gastrointestinal hemorrhage, unspecified (principal); M79.89 Other specified soft tissue disorders; I10 Essential (primary) hypertension; I25.10 Atherosclerotic heart disease of native coronary artery without angina pectoris; I25.2 Old myocardial infarction; Z87.891 Personal history of nicotine dependence; Z79.899 Other long term (current) drug therapy; Z79.82 Long term (current) use of aspirin
CPT/HCPCS: 36430; 80053; 82274; 85025; 85610; 85730; 86850; 86900; 86901; 86920; 93005; 94760; P9016; 96361; 96374; 96375